=== PATIENT | female | born 1995 | race Caucasian/White ===

== ENCOUNTER 2022-01-04 07:02 | Outpatient (CLI) | payer OTHER, SELFPAY ==
--- NOTE | 2022-01-04 07:15 | CRLHL7_ITS ---
For Patients: As a result of the Century Cures Act, medical imaging exams and procedure reports are released immediately into your electronic medical record. You may view this report before your referring provider. If you have questions, please contact your health care provider. INDICATION: PELVIC PAIN COMPARISON: 11/07/2020, 07/08/2020 TECHNIQUE: 2D fraga scale and color Doppler images were acquired of the pelvis using a transabdominal and transvaginal approach. Spectral Doppler evaluation of both ovaries also performed. FINDINGS: Sonographic images demonstrate a normal size and smooth outer contour of the uterus. Uterus measures 7.8 cm in length by 3.8 cm in AP diameter by 5.2 cm in transverse dimension. The myometrium has a normal uniform echotexture. The endometrial lining appears normal and measures 10 mm in composite thickness. The right ovary measures 3.4 x 1.8 x 2.7 cm in size and the left ovary measures 3.9 x 1.4 x 1.8 cm. The ovaries demonstrate normal arterial and venous blood flow on color Doppler analysis. Normal spectral Doppler evaluation of both ovaries without torsion. There are no suspicious fluid collections within the cul-de-sac. Postsurgical changes to the left adnexa noted from something ectomy. IMPRESSION: Postop changes of left salpingectomy with residual fluid/scar tissue in the left adnexa. Normal left ovary. No evidence of torsion. Dictated by Romaine Jarvis MD @ 01/04/2022 11:24:02 AM (Electronically Signed)
== END 2022-01-04 07:03 | disposition home or self-care (01) ==
LOC: US 07:03
PROVIDERS: PCP Physician Assistant Medical; Visit Provider Registered Nurse
DX: R10.2 Pelvic and perineal pain (principal)
CPT/HCPCS: 76830; 76856; 93976

== ENCOUNTER 2022-07-24 16:22 | Outpatient (CLI) | payer OTHER, SELFPAY ==
[2022-07-24 22:43] LABS: Free T4 Free Thyroxine* 1.14 ng/dL (0.70-1.85)
== END 2022-07-24 16:23 | disposition home or self-care (01) ==
PROVIDERS: PCP Physician Assistant Medical; Visit Provider Physician Assistant Medical
DX: R53.83 Other fatigue (principal); F41.9 Anxiety disorder, unspecified
CPT/HCPCS: 84439; 84443; 84702

== ENCOUNTER 2023-02-21 06:28 | Day surgery (SDC) | payer OTHER, SELFPAY ==
[2023-02-21] VITALS (8 sets, daily range): BP systolic 123–173; BP diastolic 77–97; PULSE 70–86; RESP 16–18; TEMP 36.6; O2SAT 96–99; BMI 44.1
--- NOTE | 2023-02-21 07:21 | W.PM.H&PU ---
History & Physical Update History & Physical Update H&P Reviewed and patient assessed: No changes noted
--- NOTE | 2023-02-21 07:21 | PM.ORPRC ---
Procedure Note Date of procedure: 02/21/23 Procedure: PREOPERATIVE DIAGNOSIS: 1. Left hand soft tissue mass POSTOPERATIVE DIAGNOSIS: 1. Left hand soft tissue mass PROCEDURE: 1. Left hand soft tissue mass excision SURGEON: Demetris Pham MD. [employer] ARRANGEMENT COUNSELOR: Giovanna March P.A.-C. An compounding assistant was critical for this case to aid in patient positioning, tissue retraction, limb manipulation/positioning, and closure. ANESTHESIA: Local anesthetic IMPLANTS: None TOURNIQUET: 6 minutes at 250 mmHg COMPLICATIONS: None evident SPECIMENS: soft tissue mass measuring 1.0 x 1.0 x 0.5 cm sent for pathology INDICATIONS: The patient is a pleasant 27-year-old female who presents for treatment of a soft tissue mass on the palmar aspect of her left hand. Mass been present for approximately 2 months and has been slowly growing. She is here today for surgical excision of the soft tissue mass. DESCRIPTION OF PROCEDURE: Patient was seen preoperatively and operative site was marked. Patient was then brought to the operating room placed in supine position on the OR table. A tourniquet was placed on the patient's left arm and left upper extremity was prepped and draped in usual sterile fashion. A surgical time-out was performed confirming patient name, procedure, and location. The subcutaneous tissues surrounding the palmar soft tissue mass were injected with 1% lidocaine. Operative extremity was then elevated and exsanguinated with an Esmarch, and tourniquet was inflated to 250 mmHg. Soft tissue mass was sharply excised at its base. Mass measured 1.0 x 1.0 x 0.5 cm incised. An elliptical incision was then made around the remnant base of the soft tissue mass. This soft tissue was also sent for pathology. Tourniquet was then released. Wound was the irrigated with normal saline. Skin incision was closed with 3-0 nylon simple interrupted stitches, and a sterile dressing was applied. Patient was then transferred to the recovery room in stable condition. POSTOPERATIVE PLAN: 1. Patient will be discharged to home day of surgery. 2. She was given instructions for wound care and finger range of motion exercises. 3. Return to the clinic for follow-up evaluation in 10-14 days for wound check and suture removal.
[2023-02-21] MEDS: LIDOCAINE 1% MDV 20 ML INJECTION (07:36)
== END 2023-02-21 08:40 | disposition home or self-care (01) ==
PROVIDERS: PCP Physician Assistant Medical; Visit Provider Orthopaedic Surgery
PROC: (CPT 26111; principal; 2023-02-21 07:30)
DX: D18.01 Hemangioma of skin and subcutaneous tissue (principal)
CPT/HCPCS: 26111; 88305

== ENCOUNTER 2023-11-20 09:33 | Outpatient (CLI) | payer OTHER, SELFPAY | END 2023-11-20 09:34 | disposition home or self-care (01) | LOC: NFLDREF 12-09 15:38 | PROVIDERS: PCP Physician Assistant Medical; Referring Provider Physician Assistant Medical; Visit Provider Physician Assistant Medical | DX: Z00.00 Encounter for general adult medical examination without abnormal findings (principal); E07.9 Disorder of thyroid, unspecified; I10 Essential (primary) hypertension; Z13.6 Encounter for screening for cardiovascular disorders | CPT/HCPCS: 80053; 80061; 84443 ==

== ENCOUNTER 2023-12-18 17:16 | Outpatient (CLI) | payer OTHER, SELFPAY ==
[2023-12-19 00:37] LABS: Chlamydia DNA Amplified* NOT DETECTED (No Detected); GC DNA Amplified* NOT DETECTED (No Detected)
== END 2023-12-18 17:17 | disposition home or self-care (01) ==
PROVIDERS: PCP Physician Assistant Medical; Visit Provider Physician Assistant Medical
DX: Z00.00 Encounter for general adult medical examination without abnormal findings (principal); R17 Unspecified jaundice
CPT/HCPCS: 87491; 87591

== ENCOUNTER 2024-01-26 17:33 | Outpatient (CLI) | payer OTHER, SELFPAY | END 2024-01-26 17:34 | disposition home or self-care (01) | LOC: NFLDREF 01-27 08:41 | PROVIDERS: PCP Physician Assistant Medical; Referring Provider Physician Assistant Medical; Visit Provider Physician Assistant Medical | DX: R35.0 Frequency of micturition (principal); R30.0 Dysuria | CPT/HCPCS: 87086 ==

== ENCOUNTER 2024-02-16 17:24 | Outpatient (CLI) | payer OTHER, SELFPAY | END 2024-02-16 17:25 | disposition home or self-care (01) | PROVIDERS: PCP Physician Assistant Medical; Visit Provider Physician Assistant Medical | DX: N91.2 Amenorrhea, unspecified (principal) | CPT/HCPCS: 80053; 84702 ==

== ENCOUNTER 2024-06-06 03:20 | Emergency (ER) | payer OTHER, SELFPAY ==
[2024-06-06 03:23] VITALS: BP 148/85; PULSE 99; RESP 18; TEMP 36.8; O2SAT 99; BMI 45.9
--- NOTE | 2024-06-06 03:49 | ED_ITS ---
HPI - General Adult General Chief complaint: Ear/Nose/Throat Problem Stated complaint: right ear pain Time Seen by Provider: 06/06/24 03:49 History of Present Illness HPI narrative: CC: Right Ear Pain pt. with ear pain since . denies drainge, n/v, diarrhea, fevers. some difficulty hearing from right ear 28-year-old woman presenting to the emergency department with concern right ear area pain now 3rd day. Has not had any fever. Is having some difficulty hearing from this right ear. Not having any dental issues. She is at approximately 15 weeks. No cough. Pain is pretty intense and unable to sleep with this now. Not noting flare of any allergies. Related Data Home Medications ?Medication ?Instructions ?Recorded ?Confirmed hydroxyzine pamoate 25 mg capsule 25 - 50 mg PO Q6H PRN 01/16/22 06/07/24 promethazine 25 mg tablet 25 mg PO Q6H PRN 06/06/24 06/07/24 Previous Rx's ?Medication ?Instructions ?Recorded levothyroxine 125 mcg tablet 125 mcg PO QDAY #90 tabs 11/20/23 fluoxetine 40 mg capsule 40 mg PO QAM #90 caps 05/14/24 amoxicillin 500 mg capsule 500 mg PO BID 10 days #20 caps 06/07/24 Allergies Allergy/AdvReac Type Severity Reaction Status Date / Time No Known Allergies Allergy Unknown Verified 06/07/24 08:03 Review of Systems Status of ROS: Reports: 6 or more systems reviewed and unremarkable except as noted in History and below [facility] Medical History Acute right otitis media ?H66.91 - Otitis media, unspecified, right ear (ICD-10) Hypertension ?I10 - Essential (primary) hypertension (ICD-10) Hemoperitoneum due to rupture of left tubal ectopic ?O00.102 - Left tubal without intrauterine (ICD-10) ?K66.1 - Hemoperitoneum (ICD-10) Pre-eclampsia ?O14.90 - Unspecified pre-eclampsia, unspecified trimester (ICD-10) ?Z34.90 - Encounter for supervision of normal , unspecified, unspecified trimester (ICD-10) Depression ?F32.A - Depression, unspecified (ICD-10) Chronic migraine History of fracture of nasal bone ?Z87.81 - Personal history of (healed) traumatic fracture (ICD-10) Encounter for preventive care ?Z00.00 - Encounter for general adult medical examination without abnormal findings (ICD-10) Surgical History Mass of left hand ?R22.32 - Localized swelling, mass and lump, left upper limb (ICD-10) H/O rhinoplasty ?Z98.890 - Other specified postprocedural states (ICD-10) Status post ectopic (2020) ?Z87.59 - Personal history of other complications of , childbirth and the puerperium (ICD-10) Social History Narrative: In a committed relationship. Not . They have a [id number] son together, Rene. Lives in [facility] Works for [employer] as [employer] Tobacco use: Vape Alcohol: 1-2 drinks per week No current recreational drug use; history of marijuana use Smoking Status: Former smoker Do you use any of these nicotine containing products: None and E-Cigarettes Second hand tobacco smoke exposure: No How often do you have a drink containing alcohol: never AUDIT-C Alcohol total score: 0 Non-prescribed substance use: denies use Exam Narrative: Exam Narrative: Pleasant. Appears rather uncomfortable but not demonstrating. Does sound conge sted in the nasopharynx. No facial swelling or erythema. Left TM mild fullness, noninflamed. Right TM is full semi transparent pink. Breathing easily. No no TMJ area pain. Dentition in good repair. Neck is supple without lymphadenopathy. Const: Vital Signs, click to edit/add: Vital Signs - 24 hr 06/06/24 03:23 Temperature 98.2 F Pulse Rate [Right Pulse Oximeter] 99 Respiratory Rate 18 Blood Pressure [Ri ght Upper Arm] 148/85 H Pulse Oximetry 99 Oxygen Delivery Me thod Room Air Documenting provider has reviewed patient's vital signs: yes Course Vital Signs Vital signs: Initial Vital Signs Temperature 98.2 F 06/06/24 03:23 Temperature Source Temporal Artery Scan 06/06/24 03:23 Pulse Rate 99 06/06/24 03:23 Respiratory Rate 18 06/06/24 03:23 Blood Pressure 148/85 H 06/06/24 03:23 Blood Pressure Mean 106 H 06/06/24 03:23 Blood Pressure Position Sitting 06/06/24 03:23 Pulse Oximetry 99 06/06/24 03:23 Oxygen Delivery Method Room Air 06/06/24 03:23 Vital Signs Temperature 98.2 F 06/06/24 03:23 Pulse Rate 99 06/06/24 03:23 Respiratory Rate 18 06/06/24 03:23 Blood Pressure 148/85 H 06/06/24 03:23 Pulse Oximetry 99 06/06/24 03:23 Oxygen Delivery Method Room Air 06/06/24 03:23 Temperature 98.2 F 06/06/24 04:18 Pulse Rate 85 06/06/24 04:18 Respiratory Rate 18 06/06/24 04:18 Blood Pressure 138/74 06/06/24 04:18 Pulse Oximetry 99 06/06/24 04:17 Oxygen Delivery Method Room Air 06/06/24 04:17 Medications Administered Medications: Discontinued Medications Generic Name Dose Route Start Last Admin Trade Name Lauren PRN Reason Stop Dose Admin Pseudoephedrine HCl 60 mg 06/06/24 04:03 06/06/24 04:11 Pseudoephedrine Hcl 30 Mg Tablet PO 06/06/24 04:04 60 mg ONCE ONE Administration Medical Decision Making MDM Narrative Medical decision making narrative: I think is having significant pain. I would try to offer symptom relief and decongestion. Not convinced this represents a bacterial otitis media at this point. Little more difficult in perhaps. However now in 2nd trimester. Would offer singular dose of pseudoephedrine here in the emergency department. Other medications are available [facility]. See patient discharge plan for further discussion Stay well-hydrated. Consider sleeping under the mist of a cool mist humidifier. I do not know if a Neti pot and nasal saline rinses might be helpful. Could try it. Think it would be all right to take pseudoephedrine for decongestion in the short term. Usually I recommend the longer-acting but in this case perhaps I would take the shorter acting tablets. We have given you a dose here in the ER. Prescribing you also a course of prednisone from [facility]. Can take 60 mg for the 1st dose. I would also make available pain pills in the form of [place]. Can take up to 1000 mg of acetaminophen per dose; remember that each tablet of [place] contains 325 mg of acetaminophen in addition to the opiate hydrocodone. Can take 2 of these [place] straight away. Warm packs may still be helpful. At this time it does not look to be infected but it seems as though there is some fluid in the middle ear on the right. Medical Records Medical records reviewed: Yes I reviewed the patient's medical records Discharge Plan Discharge Clinical Impression: Otalgia of right ear, Acute dysfunction of eustachian tube Patient Disposition: Home, Self-Care Condition: Stable Additional Instructions: Stay well-hydrated. Consider sleeping under the mist of a cool mist humidifier. I do not know if a Neti pot and nasal saline rinses might be helpful. Could try it. Think it would be all right to take pseudoephedrine for decongestion in the short term. Usually I recommend the longer-acting but in this case perhaps I would take the shorter acting tablets. We have given you a dose here in the ER. Prescribing you also a course of prednisone from [facility]. Can take 60 mg for the 1st dose. I would also make available pain pills in the form of [place]. Can take up to 1000 mg of acetaminophen per dose; remember that each tablet of [place] contains 325 mg of acetaminophen in addition to the opiate hydrocodone. Can take 2 of these [place] straight away. Warm packs may still be helpful. At this time it does not look to be infected but it seems as though there is some fluid in the middle ear on the right. Prescriptions: No Action amoxicillin 500 mg capsule 500 mg PO BID 10 Days Qty: 20 0RF promethazine 25 mg tablet 25 mg PO Q6H PRN hydroxyzine pamoate 25 mg capsule 25 - 50 mg PO Q6H PRN levothyroxine 125 mcg tablet 125 mcg PO QDAY Qty: 90 2RF fluoxetine 40 mg capsule 40 mg PO QAM Qty: 90 0RF Rx Instructions: new dosing once daily for mood Follow Up/Referrals: Valery Austin PA-C [Primary Care Provider] - Stand Alone Forms: [employer] Info Instructions
[2024-06-06] MEDS: PSEUDOEPHEDRINE HCL 30 MG TABLET 60 MG PO (04:11)
[2024-06-06 04:17] VITALS: BP 138/74; PULSE 85; RESP 18; TEMP 36.8; O2SAT 99
[2024-06-06 04:18] VITALS: BP 138/74; PULSE 85; RESP 18; TEMP 36.8
--- OUTSIDE RECORDS SUMMARY | 2024-06-06 13:02 | XMS_ITS | Data Portability ---
Author Organization [place] [facility] Address [address] [address] Assessment Encounter Date Assessment Date Assessment LastModified by Organization Details LastModified Time 03/21/2022 03/21/2022 Today I spent a considerable amount of time discussing the patients past medical and personal history, as well as performing a physical examination all of which is documented in it's entirety in the electronic health record. I reviewed the pathophysiology of the disorder, potential contributing and risk factors as well as treatment options to address their complaints. Sandie is a pleasant 26 year old. Sneezing is a trigger for pain and popping. I do believe that she is presenting with a combination of retrodiscitis induced by strain-sprain of jaw. In differential we will keep a sneezing headache. From a treatment perspective I recommended a self management treatment approach. Treatment begins with home self management designed to rest the muscles of mastication and reduce inflammation in the temporomandibular joints. This includes heat and ice compresses, eating a soft food or pain-free diet, bilateral chewing identifying and decreasing daytime muscle tension and modification of their sleep position. This includes stretching the jaw and neck and being mindful of loosening the jaw while she is working. I am also recommending ice compressions. The goal of treatment is to restore function and reduce pain. I believe that by following these treatment recommendations there is a good prognosis for reduction of symptoms. History was obtained from the patient. The patient has 3 diagnoses they would like to address. This case is mild-moderate complexity because of limited diagnoses . Data reviewed included: no records were available today. Discussion with pain team members before visit was necessary. Risk of complications include progressive disease/symptoms. Today time spent may have included a review of past records, history taking, review of diagnoses, contributing factors, treatment plan, diagnostic testing, prognosis, expectations, risks and complications of treatment/no treatment, discussions with other providers and completing documentation was 45 minutes. Not available 03/26/2022 07:05:31 11/05/2022 11/05/2022 Today I reviewed the pathophysiology of this disorder, potential contributing factors and treatment options with the patient. Diagnosis and treatment options were reviewed at today's appointment. 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 These symptoms have progressed. I am recommending self-care and splint therapy at this time. The focus of care will be continued, gradual rehabilitation and pain management with occasional oral appliance adjustments as needed. Scans were taken for fabrication of a mandibular splint, we will hold the splint until Fior calls for information from her insurance. I also believe that she will benefit with physical therapy as well. The goal is to reduce the locking episodes and sharp ear pain. Noises may continue. History today was obtained from the patient. The patient has 4 diagnoses which we are addressing. Their symptoms are worsening. This case is moderate complexity because of multiple diagnoses with chronic symptoms. Data reviewed included no records were available today. Discussion with treatment team members after visit was necessary. Risk of complications include disease/symptom progression were discussed. Today time spent may have included a review of past records, history taking, review of diagnoses, contributing factors, treatment plan, diagnostic testing, prognosis, expectations, risks and complications of treatment/no treatment, discussions with other providers and completing documentation was 35 minutes. I suggested that (s)he return for follow-up care in 2-3 months. Not available 11/19/2022 07:00:10 Plan of Treatment Reminders Order Date Submit Date Provider Last Modified By Organization Details Last Modified Time Details Appointments None recorded. Lab None recorded. Referral physical therapist referral 2022 023 Not available 07:00:01 Procedures None recorded. Surgeries None recorded. Imaging None recorded. Medication Orders None recorded. Patient TargetsNo targets recorded. Patient Instructions Encounter Date Encounter Id Patient Instructions Last Modified By Organization Details Last Modified Time 03/21/2022 [id number] Self Care for TMD Not availab le 03/26/2022 07:06:17 11/05/2022 [id number] oral appliance preparation* Not available 11/19/2022 07:00:01 Reason for Referral Physical Therapist Referral for Articular disc disorder of temporomandibular joint Referring Physician: [facility], Encounter Date: 11/05/2022 Results Created Date Observation Date Name Description Value Unit Range Abnormal Flag Note LastModifiedBy Organization Detail LastModifiedTime Result Notes None recorded. Problems Name Problem SNOMED Code Status Onset Date Resolution Date Notes Provider Name and Address Organization Details Recorded Time Myofasci al pain 887032548 Active 2021 EFRAÍN REA BDS, [place] [address] [facility] [address], [place], [address], [facility] 2 07:06:09 Cough headache syndrome 51082256 Active 2021 EFRAÍN REA BDS, [place] [address] [facility] [address], [place], [address], [facility] 2 07:06:11 Articula r disc disorder of temporom andibula r joint 54311375 Active 2021 L TMJ DD w intermitt ent locking, R TMJ DD w reduction Hector edwards [facility] 3 18:35:07 Referred otalgia of left ear [id number] 86033 Active 2022 Hector edwards [facility] 3 18:35:09 Problem Notes None recorded. Procedures Surgical History Date Name Laterality Status Provider Name and Address Organization Details Recorded Time 1 ENT/Sinus Surgery completed Jody Verduzco [facility] 03/21/2022 15:06:22 1 Other completed Jody Verduzco [facility] 03/21/2022 15:06:22 ENT/Sinus Surgery completed Jody Verduzco [facility] 03/21/2022 15:06:22 Imaging Results None recorded. Procedure Notes None recorded. Medical Equipment None Reported. Allergies No known drug allergies Medications Name Sig Start Date Stop Date Status Note LastModified by Organization Details LastModified Time levothyroxi ne 75 mcg tablet TAKE ONE TABLET BY MOUTH ONE TIME DAILY 11/05 completed Not Available Not Available Not Available levothyroxi ne 100 mcg tablet Take 1 tablet (100 mcg total) by mouth every morning before breakfast . Take an additiona l 100 mcg on Friday and Friday each week active Not Available Not Available No t Available levothyroxi ne 88 mcg tablet Take 1 tablet daily for thyroid. New dosing 11/05 completed Not Available Not Available Not Available cephalexin 500 mg capsule TAKE ONE CAPSULE BY MOUTH TWICE A DAY WITH FOOD UNTIL USED UP 03/15 completed Not Available Not Available Not Available cabergoline 0.5 mg tablet TAKE 1 TABLET BY MOUTH 2 TIMES PER WEEK 11/05 completed Not Available Not Available Not Available montelukast 10 mg tablet active Not Available Not Available Not Available albuterol sulfate HFA 90 mcg/actuati on aerosol inhaler take 2 puffs by mouth/inh alation every 4 to 6 hours As Needed for shortness of breath or wheezing active Not Available Not Available No t Available ondansetron 4 mg disintegrat ing tablet DISSOLVE 1 TABLET ON THE TONGUE EVERY 6 HOURS NEEDED FOR NAUSEA. 03/15 completed Not Available Not Available Not Available clindamycin phosphate 1 % topical solution Apply 1 applicati on topically at bedtime. active Not Available Not Available No t Available oxycodone 5 mg tablet TAKE 1 TABLET BY MOUTH EVERY 4 HOURS NEEDED FOR PAIN. 03/15 completed Not Available Not Available Not Available hydroxyzine pamoate 25 mg capsule TAKE 1-2 CAPSULES BY MOUTH EVERY 6 HOURS NEEDED FOR SLEEP AIDE OR SEVERE ANXIETY active Not Available Not Available No t Available escitalopra m 10 mg tablet TAKE TWO TABLETS BY MOUTH DAILY active Not Available Not Available No t Available Arnuity Ellipta 50 mcg/actuati on powder for inhalation INHALE 1 PUFF DAILY active Not Available Not Available No t Available Vitals Date Recorded Body temperature Heart rate Body height Body mass index (BMI) Body weight Systolic blood pressure Diastolic blood pressure Provider Name and Address Organization Details Last Updated DateTime 2 97.7 [degF] 87 /min 177.8 cm 39.6 kg/m2 376179. 49 g 124 mm[Hg] 83 mm[Hg] Jody Johnrosario [facility] 15:10:53 Date Recorded Body height Heart rate Systolic blood pressure Diastolic blood pressure Provider Name and Address Organization Details Last Updated DateTime 11/05/2022 177.8 cm 88 /min 126 mm[Hg] 85 mm[Hg] Hector Dolanppard [facility] 11/05/2022 18:18:34 Social History Question Answer Notes LastModified by Organizat ion Details LastModified Time Tobacco Smoking Status Current Every Day Smoker Jody Johnrosario [facility] 03/21/2022 15:06:15 What Is Your Level Of Alcohol Consumption? Moderate [email or web address] Information not available 03/21/2022 What Is Your Level Of Caffeine Consumption? Heavy [email or web address] Information not available 03/21/2022 Are You Currently Employed? Yes [email or web address] Information not available 03/21/2022 What Type Of Diet Are You Following? REGULAR [email or web address] Information not available 03/21/2022 Do You Reside In Or Have You Traveled To An Area Where Ebola Virus Transmission Is Active? No Information not available 03/21/2022 What Is The Highest Grade Or Level Of School You Have Completed Or The Highest Degree You Have Received? 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 (0=no Pain, 10=pain As Bad As You Can Imagine) 4 [email or web address] Information not available 03/21/2022 What Number Best Describes How, During The Past Week, Pain Has Interfered With Your Enjoyment Of Life? (0=does Not Interfere, 10= Completely Interferes) 3 Information not available 03/21/2022 What Number Best Describes How, During The Past Week, Pain Has Interfered With Your General Activity? (0=does Not Interfere, 10=completely Interferes) 3 [email or web address] Information not available 03/21/2022 How Did Primary Problem Begin? Dental Work Information not available 03/21/2022 How Many Children Do You Have? 0 [email or web address] Information not available 03/21/2022 What Is Your Relationship Status? Other [email or web address] Information not available 03/21/2022 Do You Feel Stressed (tense, Restless, Nervous, Or Anxious, Or Unable To Sleep At Night)? [id number] [email or web address] Information not available 03/21/2022 Do You Use Any Illicit Or Recreational Drugs? No [email or web address] Information not available 03/21/2022 How Many Years Have You Smoked Tobacco? 5 [email or web address] Information not available 03/21/2022 Sex: Unknown Functional Status Question Answer Note LastModified by Organizat ion Details LastModified Time What is your exercise level? Occasional [email or web address] Information not available 03/21/2022 Mental Status None recorded. Family History Relationship Description Onset Age of this Age Resolved Age Notes LastModified by Organization Details LastModified Time Mother Depressive disorder [email or web address] Not available 2021 15:05:51 Mother Hypertensive disorder [email or web address] Not available 2021 15:05:51 Mother Migraine [email or web address] Not availabl e 03/21/2022 15:05:51 Father Diabetes mellitus [email or web address] Not available 2021 15:05:51 Medical History Condition Response Anxiety Disorder Y Other Y Migraines Y Asthma Y Gynecological HistoryNo gynecological history recorded. Obstetrics History GPAL:G 0 P 0 0 0 0 Immunizations Vaccine Type Date Status Note Provider Nam e and Address Organization Details Recorded Time SARS-COV-2 (COVID-19) vaccine, UNSPECIFIED 03/31/2021 completed NEYMAR [facility] - [facility] 03/21/2022 15:06:29 Past Encounters Encounter ID Performer Location Encounter Start Date Encounter Closed Date Diagnosis/Indication Diagnosis SNOMED-CT Code Diagnosis ICD10 Code [id number] MARCELLO REA BDS, [place] [facility] [address] [place] [address] 03/21/2022 14:57:17 03/21/2022 15:51:38 Articular disc disorder of temporomandibular joint 92576426 M26.633 Myofascial pain 50879896 9 M79.11 Cough head ache syndrome 65639623 G44.83 [id number] MARCELLO REA BDS, [place] [facility] [address],[place] [address] 11/05/2022 18:11:30 11/05/2022 19:01:08 Myofascial pain 619040220 M79.11 Articular disc disorder of temporomandibular joint 04817419 M26.633 Referred o talgia of left ear 7215728421 064490 H92.02 Health Concerns Section Related Observation LastModified by Organization Detai ls LastModified Time None Recorded Concern Status LastModified by Organization Details LastModified Time None Recorded Advance Directives Directive None Recorded Payers Encounter Date Sequence Insurance Name Policy Number Policy Rivero Covered Member ID Rievro Member ID Guarantor Name 03/21/2022 2 [facility] [place] - [facility] Fior Kamara [id number] Fior Kamara 11/05/2022 1 [employer] - [facility] Fior Kamara [id number] Fior Kamara Notes Date Note Type Note Provider Name and Address Organization Details Recorded Time 2 text/html general HPI for jaw, face, TMD painReported bypatient.Onset:starte d 4 month(s) ago Location:bilateral; masseteric; ear Quality:dull; sore; stabbing; burning Severity:moderate; pain level 3/10 Durationintermittent daily; lasts minutes; not improving or worsening Symptom triggers:chews hard/crunchy/chewy foods; dental work Aggravating Factors:dental work Alleviating Factors:NSAIDs; chews food on left side only Associated Symptoms:jaw clicking bilateral;jaw popping left;headaches Prior opiniondentist Patient presents today for evaluation of a possible temporomandibular disorder. These symptoms are {{acute* chronic}} and began with {{ no clear triggering events significant stress and tension recent dental work #}}. Previous consultation include {{ none evaluation with his/her primary care provider evaluation with his/her dentist evaluation with both his/her dentist and primary care provider evaluation with her dentist#}}. Symptoms are {{right sided only left sided only bilateral*}} and aggravated by {{ no clear triggers* jaw use and function clenching and grinding of their teeth stress and tension}}. The patient is {{aware not aware*}} of teeth clenching and grinding. Fior is a pleasant 26 yr old who was referred by her DDS Dr. Pallavi Dominguez. Fior states that she had 2 crowns and 4 restorations in October 2021. Since then she is noticing left TMJ pain. Sneezing aggravates popping and ear pain like an ice pick. That pain lasts for 5-10 mins. She has a dull ache on the right but on the left it bring her in tears if she does not hold her jaw while sneezing. It does not bother hew while eating. Her headaches are not new. Her anxiety is controlled. 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 EFRAÍN REA BDS, [place] [address] [facility] [address] [place], [address], [facility] 03/26/2022 07:07:29 3 text/html general HPI for jaw, face, TMD painReported bypatient.Onset:starte d 4 month(s) ago Location:bilateral; masseteric; ear Quality:dull; sore; stabbing; burning Severity:moderate; pain level 3/10 Durationintermittent daily; lasts minutes; not improving or worsening Symptom triggers:chews hard/crunchy/chewy foods; dental work Aggravating Factors:dental work Alleviating Factors:NSAIDs; chews food on left side only Associated Symptoms:jaw clicking bilateral;jaw popping left;headaches Prior opiniondentist Patient presents today for evaluation of a possible temporomandibular disorder. These symptoms are {{acute* chronic}} and began with {{ no clear triggering events significant stress and tension recent dental work #}}. Previous consultation include {{ none evaluation with his/her primary care provider evaluation with his/her dentist evaluation with both his/her dentist and primary care provider evaluation with her dentist#}}. Symptoms are {{right sided only left sided only bilateral*}} and aggravated by {{ no clear triggers* jaw use and function clenching and grinding of their teeth stress and tension}}. The patient is {{aware not aware*}} of teeth clenching and grinding.Fior is present for a follow up, she was last seen in Feb 2022 and was given self care. She is noticing popping of the TM, clicking and intermittent jaw locking in an open position. She does state that can have intermittent ear pain. Fior states that she is not interested in an oral appliance as she doesn't think that she clenches her teeth. She does not have time for PT but maybe just some exercises. She tried Tylenol and ice compressions. The ice pick pain's frequency has increased, dull pain and click is constant. Left side is worse than right. Pain is around the ear on right. Fior is a pleasant 26 yr old who was referred by her DDS Dr. Pallavi Dominguez. Fior states that she had 2 crowns and 4 restorations in October 2021. Since then she is noticing left TMJ pain. Sneezing aggravates popping and ear pain like an ice pick. That pain lasts for 5-10 mins. She has a dull ache on the right but on the left it bring her in tears if she does not hold her jaw while sneezing. It does not bother hew while eating. Her headaches are not new. Her anxiety is controlled. 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 EFRAÍN REA BDS, [place] [address] [facility] [address], [place], [address], [place] [facility] 11/19/2022 07:04:48 OBGyn Episode No OBEpisode recorded.
== END 2024-06-06 04:18 | disposition home or self-care (01) ==
LOC: ED 04:08
PROVIDERS: Emergency Provider Family Medicine; PCP Physician Assistant Medical
DX: H66.91 Otitis media, unspecified, right ear (principal)
CPT/HCPCS: 99283; 99284; A9270

== ENCOUNTER 2024-12-30 14:23 | Outpatient (CLI) | payer OTHER, SELFPAY | END 2024-12-30 14:24 | disposition home or self-care (01) | LOC: LKVREF 14:25 | PROVIDERS: PCP Physician Assistant Medical; Visit Provider Physician Assistant Medical | DX: E07.9 Disorder of thyroid, unspecified (principal) | CPT/HCPCS: 84443 ==